=== PATIENT | male | born 1980 | race Asian ===

== ENCOUNTER 2018-06-10 15:49 | Emergency (ER) | payer SELFPAY ==
[~2018-06-10] VITALS: Ht 12.7 cm; Wt 3.6 kg
--- NOTE | 2018-06-10 15:49 | NUR ---
Patient BIBA ACLS accompanied by FD, transferred to bed 9. RN evaluating patient at bedside.
[2018-06-10 15:53] VITALS: BP 149/92
--- NOTE | 2018-06-10 16:06 | NUR ---
Dr. Mcmahan evaluating patient at bedside.
[2018-06-10] MEDS ORDERED: ZIPRASIDONE MESYLATE 20 MG/ML VIAL IM ONE (16:15)
--- NOTE | 2018-06-10 16:30 | NUR ---
PT IS AGITATED AND SCREAMING. PT IS YELLING OUT GIBBERISH AND CURSE WORDS. PT IS ALSO FLALING AROUND IN BED. PT HAS BEEN ASKED REPEATEDLY TO CALM DOWN WITHOUT SUCCESS.
--- NOTE | 2018-06-10 16:50 | NUR ---
PT ASLEEP ON [place]
--- NOTE | 2018-06-10 18:15 | NUR ---
PT GOT UP OUT OF BED AND RELEASED RESTRAINTS. WAS ATTEMPTING TO LEAVE ED WITH IV IN PLACE. PT WAS ASSISTED BACK INTO BED BY EMT AND CAST ASSOCIATE.
--- NOTE | 2018-06-10 19:08 | NUR ---
REPORT GIVEN TO SAMEERA BELLA. TRANSFER OF CARE AT THIS TIME.
--- NOTE | 2018-06-10 19:10 | NUR ---
ASSUMED CARE OF PATIENT PATIENT CURRENTLY IN [facility] IN POSITION OF COMFORT. PER REPORT, PATIENT STATES HE INGESTED, PCP AND [place] TODAY, PATIENT DENIES ANY SI/HI. PATIENT GCS 14,- CONFUSED, BUT DOES OBEY SIMPLE COMMANDS. PATIENT MENTATION IS CALM AND COOPERATIVE BUT CONTINUES TO TALK IN TANGENTS, NO MAKING ANY SENSE TALKING TO HIMSELF, SAYING "I MISS [place], YOU ARE OKAY, I HAVE TO PEE, NO I DONT HAVE TO PEE" PATIENT WAS GIVEN URINAL BUT WAS UNABLE TO URINATE. PATIENT AAOX3, NAME, , PRESIDENT, BUT CANNOT RECALL DATE. PATIENT BREATHING IS EVEN AND UNLABORED, EQUAL RISE AND FALL OF CHEST. PATIENT DENIES ANY CP/SOB. DR ESPARZA MADE AWARE OF PATIENT'S STATUS. NO ACUTE DISTRESS NOTED. WILL CONTINUE TO MONITOR
--- NOTE | 2018-06-10 19:11 | NUR ---
COMPLETE ASSESSMENT NOT COMPLETED BY DAY-SHIFT NURSE, CHARGE NURSE DEONTE MADE AWARE
[2018-06-10] MEDS ORDERED: LORazepam 2 MG/ML VIAL IM ONE (19:55)
[2018-06-10] MEDS ORDERED: HALOPERIDOL IM 5 MG/ML VIAL IM ONE (19:55)
--- NOTE | 2018-06-10 19:55 | NUR ---
PATIENT IS INCREASING IN AGITATION, WILL NOT LAY IN BED, TALKING TO HIMSELF, STATING " MY SKIN IS ON FIRE, IT THOMAS" PATIENT REASSURED, PATIENT IS SAFE, SKIN APPEARS INTACT. ATTEMPT TO REORIENT PATIENT. PATIENT UNCOOPERATIVE. DR ESPARZA MADE AWARE.
--- NOTE | 2018-06-10 20:54 | NUR ---
PATIENT CURRENTLY SLEEPING, EASILY AROUSABLE. PATIENT BREATHING IS EVEN AND UNLABORED, EQUAL RISE AND FALL OF CHEST, NO ACUTE DISTRESS NOTED +[id number], WILL CONTINUE TO MONITOR
--- NOTE | 2018-06-10 23:07 | NUR ---
Patient appears to be resting comfortably in bed. Vital Signs within normal limits. Respirations even and unlabored.
--- NOTE | 2018-06-11 02:00 | NUR ---
Patient appears to be resting comfortably in bed. Vital Signs within normal limits. Respirations even and unlabored.
--- NOTE | 2018-06-11 04:00 | NUR ---
Patient appears to be resting comfortably in bed. Vital Signs within normal limits. Respirations even and unlabored.
--- NOTE | 2018-06-11 04:30 | NUR ---
PATIENTS PHONE BEGAN TO RING, PATIENT WOKE UP. WHEN ASKED WHY PATIENTS RINGER WAS GOING OFF, PATIENT STATES "ITS MY ALARM TO WAKE UP AND GO TO WORK, I WORK FOR [employer]"
--- NOTE | 2018-06-11 04:35 | NUR ---
PATIENT AWAKE NOW, STILL TALKING TO HIMSELF. PATIENT GCS 15, AAOX4. PATIENT AMBULATORY WITH STEADY GAIT, GAVE ADDRESS FOR HOME. PATIENT BREATHING IS EVEN AND UNLABORED, EQUAL RISE AND FALL OF CHEST. PATIENT DENIES ANY SI/HI. NO ACUTE DISTRESS NOTED. WILL CONTINUE TO MONITOR
--- NOTE | 2018-06-11 04:35 | NUR ---
PATIENT [place] [id number] [facility] [id number]. PATIENT STATES HE HAS KEYS TO HOUSE.
--- NOTE | 2018-06-11 04:35 | NUR ---
Note leny in ED - 06/11/18 at 0449 by CORTEZ PATIENT WOKE UP, TALKING TO HIMSELF, "I NEED A MAGNET CAR", CALM COOPERATIVE. PATIENT BREATHING IS EVEN AND UNLABORED, EQUAL RISE AND FALL OF CHEST, NO ACUTE DISTRESS NOTED. WILL CONTINUE TO MONITOR
--- NOTE | 2018-06-11 04:56 | NUR ---
PATIENT GIVEN BUS VOUCHER. PATIENT AGREES WITH TRANSPORTATION.
[2018-06-11 04:57] VITALS: BP 120/86
--- NOTE | 2018-06-11 04:57 | NUR ---
Patient discharged with v/s stable. Written and verbal after care instructions given and explained. Patient verbalized understanding. Ambulatory with steady gait. All questions addressed prior to discharge. Advised to follow up with PMD.
== END 2018-06-11 04:57 | disposition home or self-care (01) ==
LOC: MED 15:49
DX: F12.10 Cannabis abuse, uncomplicated (principal); F15.10 Other stimulant abuse, uncomplicated; R46.2 Strange and inexplicable behavior; Z88.0 Allergy status to penicillin
CPT/HCPCS: 96372; 99283; J1630; J2060; J3486